=== PATIENT | female | born 1970 | race Caucasian/White ===

== ENCOUNTER 2016-07-30 15:36 | Emergency (ER) | payer OTHER ==
[~2016-07-30] VITALS: Wt 66.0 kg
[~2016-07-30 15:36] MED LIST: ACYC800T57 PO; GABA300C16 PO; HYDR-3011 PO; HYDR-906 PO
[2016-07-30] MEDS ORDERED: IBUP-1542 PO (16:35)
--- NOTE | 2016-07-30 16:43 | ERD ---
ER Documentation Chief Complaint Date/Time DATE: 07/30/16 TIME: 16:41 Chief Complaint LEFT EAR PAIN FROM STICKINGA Q TIP 30 MN AGO . SOME BLEEDING. HPI This is a 46-year-old female playing her ear about 30 minutes ago and stepped the Q-tip too far in. Patient felt pain and noticed that she was bleeding from her ear. Bleeding has now resolved. Patient does admit to some muffled hearing. She denies any tinnitus. She does complain of ear pain that is getting worse. Patient denies any fevers or chills. She denies any discharge from the ear. ROS 12 point review of systems was done, all negative except per HPI. Medications Home Meds Active Scripts Ibuprofen* (Motrin*) 600 Mg Tab, 600 MG PO Q6, #30 TAB Prov:MELANIE RODAS 07/30/16 Hydroxyzine Hcl* (Hydroxyzine Hcl*) 25 Mg Tablet, 25 MG PO Q8H Y for ITCHING, # 30 TAB Prov:EUGENIA LILLY NP 01/22/16 Acyclovir* (Zovirax*) 800 Mg Tablet, 800 MG PO 5 TIMES DAILY for 7 Days, TAB Prov:EUGENIA LILLY NP 01/22/16 Gabapentin* (Gabapentin*) 300 Mg Capsule, 300 MG PO BID, #20 CAP Prov:EUGENIA LILLY NP 01/22/16 Hydrocodone/Acetaminophen (Anderson 5-325 Tablet) 1 Each Tablet, 1 TAB PO Q6H Y for SEVERE PAIN LEVEL 7-10, #20 TAB Prov:EUGENIA LILLY NP 01/22/16 Allergies Allergies: Coded Allergies: No Known Allergy (Unverified , 01/21/16) PMhx/Soc History of Surgery: No Anesthesia Reaction: No Hx Neurological Disorder: No Hx Respiratory Disorders: No Hx Cardiac Disorders: No Hx Psychiatric Problems: No Hx Miscellaneous Medical Probl: Yes (BACK INJURY) Hx Alcohol Use: No Hx Substance Use: No Hx Tobacco Use: No Physical Exam Vitals Vital Signs Date Time Temp Pulse Resp B/P Pulse Ox O2 Delivery O2 Flow Rate FiO2 07/30/16 15:59 98.2 88 20 123/60 98 Physical Exam GENERAL: The patient is well-developed, well-nourished, in no acute distress. HEENT: Atraumatic. Conjunctivae pink, no discharge. Left tympanic membrane is ruptured, there is some bleeding now. RESPIRATORY: Clear to auscultation bilaterally. There are no rales, wheezes or rhonchi. HEART: Regular rate and rhythm. No murmurs, clicks, rubs or gallops. NEUROLOGIC: Alert and oriented Procedures/MDM This is a 46-year-old female presents to the ER with left ear pain after sticking a Q-tip too far in. Patient doesn't appear to have ruptured her tympanic membrane, likely traumatic in nature. There was a small amount of blood in the ear canal secondary to possible rupture. At this time patient will be sent home with ibuprofen and with Anderson for pain control. Patient was advised not to get any water in her ear. Patient needs to follow-up with her primary care doctor possibly see an ENT doctor for symptoms do not get better on their own. Patient is afebrile and well-appearing. Patient is stable for outpatient therapy. I shared my medical decision making with the patient she understands and agrees with plan. Departure Diagnosis: Primary Impression: Tympanic membrane rupture, traumatic Condition: Stable Patient Instructions: Ruptured Tm, Traumatic Additional Instructions: Call your primary care doctor TOMORROW for an appointment during the next 1-2 days.See the doctor sooner or return here if your condition worsens before your appointment time. IF SYMPTOMS ARE NOT IMPROVING, PLEASE SEE A HENT (HEAD, EARS, EYES DOCTOR) PLEASE BE VERY CAREFUL WITH WATER. DO NOT GET WATER IN YOUR EARS, OR APPLY DROPS. MELANIE RODAS Jul 30, 2016 16:43
== END 2016-07-31 08:31 | disposition home or self-care (01) ==
LOC: E/R 15:36
DX: S09.22XA Traumatic rupture of left ear drum, initial encounter (principal); X58.XXXA Exposure to other specified factors, initial encounter; Y92.9 Unspecified place or not applicable
CPT/HCPCS: 99283

== ENCOUNTER 2016-10-01 10:15 | Day surgery (SDC) | payer OTHER ==
[2016-10-01] VITALS (14 sets, daily range): BP systolic 93–118; BP diastolic 44–64; PULSE 64–82; RESP 14–20; Ht 162.6 cm; Wt 66.0 kg
[~2016-10-01] VITALS: Ht 162.6 cm; Wt 66.0 kg
[~2016-10-01 10:15] MED LIST changes: +IBUP-1542 PO
[2016-10-01] MEDS ORDERED: ATOR20TA38 PO (10:46)
[2016-10-01] MEDS ORDERED: SOD CHLORIDE 0.9% 1,000 ML IV SCH (12:30)
[2016-10-01] MEDS ORDERED: CEFAZOLIN 2 GM/50 ML (PMX) 50 ML IVPB ONE (12:30)
[2016-10-01] MEDS ORDERED: PROPOFOL 20 ML ONE ×2 (13:06→13:34)
[2016-10-01] MEDS ORDERED: METOCLOPRAMIDE 10 MG INJ ONE (13:06)
[2016-10-01] MEDS ORDERED: MIDAZOLAM 1 MG/ML 2 ML INJ ONE (13:06)
[2016-10-01] MEDS ORDERED: FENTAnyl 50 MCG/ML VIAL ONE (13:06)
[2016-10-01] MEDS ORDERED: CEFAZOLIN 1 GM INJ ONE (13:06)
[2016-10-01] MEDS ORDERED: OXYCODONE/ACETAMINOPHEN (5/325) TAB PO PRN ×2 (13:30)
[2016-10-01] MEDS ORDERED: MEPERIDINE 25 MG INJ IV PRN (13:30)
[2016-10-01] MEDS ORDERED: ONDANSETRON 4 MG INJ IV PRN (13:30)
[2016-10-01] MEDS ORDERED: HYDROmorphONE (0.2 MG/ML) 10ML SYG IV PRN ×3 (13:30)
[2016-10-01] MEDS ORDERED: DIPHENHYDRAMINE 50 MG INJ IV PRN (13:30)
[2016-10-01] MEDS ORDERED: LIDOCAINE 2% (MDV) 20 ML INJ INJ ONE (13:40)
[2016-10-01] MEDS ORDERED: BUPIVACAINE 0.5% (MPF) 30 ML INJ INJ ONE (13:40)
[2016-10-01] MEDS ORDERED: KETOROLAC 30 MG INJ ONE (13:50)
--- NOTE | 2016-10-01 13:57 | OPR ---
Date/Time of Note Date/Time of Note DATE: 10/01/16 TIME: 13:55 Operative Report Procedure Date: October 01, 2016 Preoperative Diagnosis right lower leg mass and left upper leg mass Postoperative Diagnosis same Operation Performed right lower leg mass excision with 3 cm mass and 3 cm incision left upper leg mass excision with 4 cm mass and 4 cm incision localized adjacent tissue transfer with the use of skin flaps Surgeon: Iftikhar FLOYD Specimens right lower leg mass and left upper leg mass Iftikhar FLOYD October 01, 2016 13:57
[2016-10-01] MEDS ORDERED: ACETAMINOPHEN/CODEINE #3 TAB PO ONE (14:00)
--- NOTE | 2016-10-01 14:14 | OPR ---
DATE OF OPERATION: 10/01/2016 INDICATION: This is a 46-year-old female with a right lower leg mass and left upper leg mass. She requests surgical excision. Risks, alternatives, benefits, and personnel were discussed with the [facility]. The patient expressed understanding and consents to the operation. PREOPERATIVE DIAGNOSES: 1. Right lower leg mass. 2. Left upper leg mass. POSTOPERATIVE DIAGNOSES: 1. Right lower leg mass. 2. Left upper leg mass. OPERATION PERFORMED: 1. Excision of left upper anterior leg mass with 4 cm size incision and 4 x 1 cm size mass. 2. Localized adjacent tissue transfer with the use of skin flaps of left upper thigh skin defect wi th 4 square cm defect. 3. Right anterior lower leg mass excision with 3 cm size incision and 3 x 1 size mass. 4. Localized adjacent tissue transfer of the right anterior lower leg skin defect of 3 square cm. SURGEON: Jeni Alvares MD SPECIMEN: None. COMPLICATIONS: None. ANESTHESIA: General. DESCRIPTION OF PROCEDURE: The patient was taken to the OR and prepped and draped in the usual ster ile fashion. Surgical timeout was performed. IV antibiotics were given. Transverse incision was m brii over the left upper anterior leg mass with a 15 blade. Dissection cautery was circumferentially taken around the mass and excised. There was good hemostasis. Due to the tissue defect, localized adjacent tissue transfer with the use of skin flaps was performed. Multilayer closure with interru pted 3-0 Vicryl and skin anna. Local anesthesia was injected. Right anterior lower leg mass was addressed in a similar fashion with excision of the mass with a 15 blade. Dissection cautery was carried down circumferentially around the mass. Due to the tissue d efect, localized adjacent tissue transfer with the use of skin flaps was performed. Multilayer clos ure with interrupted 3-0 Vicryl and skin anna. Local anesthesia was injected at all sites. Dry dressings were applied. Dictated By: JENI CARMONA/STONE Conf#: [id number] DID#: [id number]
== END 2016-10-01 15:40 | disposition home or self-care (01) ==
LOC: SDS 10:15
PROVIDERS: ATTEND Surgery
DX: D23.72 Other benign neoplasm of skin of left lower limb, including hip (principal); D23.71 Other benign neoplasm of skin of right lower limb, including hip
CPT/HCPCS: 14020; 84703; 88307; J0690; J1885; J2175; J2250; J2405; J2765; J3010; Z7512; Z7610